=== PATIENT | male | born 1970 | race Hispanic/Latino ===

== ENCOUNTER 2020-07-18 15:55 | Observation (INO) | payer MEDICARE, OTHER ==
[~2020-07-18] VITALS: Ht 167.6 cm; Wt 90.7 kg
[~2020-07-18 15:55] MED LIST: AMLODIPINE BESY10 MG PO; ATENOLOL50 MG PO; ATORVASTATIN CA10 MG PO; BENICAR HCT 401 EACH PO; METFORMIN HCL500 MG PO
[2020-07-18 16:40] LABS: BASOPHILS % 0.3 % (0.0-1.0); EOSINOPHILS # (AUTO) 0.1 (0.0-0.4); EOSINOPHILS % 1.2 % (0.0-6.0); HEMATOCRIT 39.9 % (38.2-49.6); HEMOGLOBIN 13.8 g/dL (14.0-18.0); LYMPHOCYTES # (AUTO) 2.7 (1.0-3.2); MEAN CORPUSCULAR HEMOGLOBIN 29.9 pg (28-32); MEAN CORPUSCULAR HGB CONC 34.6 g/dL (31-35); MEAN CORPUSCULAR VOLUME 86.4 fL (81-99); MONOCYTES % 8.6 % (4.4-11.3); NEUTROPHILS # (AUTO) 7.3 (2.1-6.9); NEUTROPHILS % 65.4 % (38.7-80.0); PLATELET COUNT 280 x10e3/uL (140-360); RED BLOOD COUNT 4.62 x10e6/uL (4.3-5.7); RED CELL DISTRIBUTION WIDTH 12.6 % (11.7-14.4)
[2020-07-18 16:49] LABS: INR 0.96; PROTHROMBIN TIME 13.3 seconds (11.9-14.5)
[2020-07-18 16:58] LABS: CLARITY,URINE CLEAR (CLEAR); COLOR,URINE YELLOW (YELLOW); LEUKOCYTE ESTERASE ,URINE NEGATIVE (NEGATIVE); NITRITE,URINE NEGATIVE (NEGATIVE)
[2020-07-18 16:59] LABS: BILIRUBIN,URINE NEGATIVE (NEGATIVE); KETONES,URINE TRACE (NEGATIVE); PROTEIN,URINE DIPSTICK NEGATIVE (NEGATIVE); URINE UROBILINOGEN 0.2 mg/dL (0.2 - 1)
[2020-07-18 17:00] LABS: ALANINE AMINOTRANSFERASE 14 IU/L (0-55); ALBUMIN/GLOBULIN RATIO 1.1 (0.8-2.0); ALKALINE PHOSPHATASE 60 IU/L (40-150); ANION GAP 11.1 mmol/L (8-16); BLOOD UREA NITROGEN 14 mg/dL (7-26); BUN/CREATININE RATIO 19 (6-25); CALCIUM 9.4 mg/dL (8.4-10.2); CARBON DIOXIDE 26 mmol/L (22-29); CHLORIDE 95 mmol/L (98-107); CREATININE, SERUM 0.73 mg/dL (0.72-1.25); EST GLOMERULAR FILTRATION RATE > 60 ML/MIN (60-); POTASSIUM 3.1 mmol/L (3.5-5.1); SODIUM 129 mmol/L (136-145)
[2020-07-18 17:08] LABS: GLUCOSE 33 mg/dL (74-118)
[2020-07-18] MEDS ORDERED: DEXTROSE 5%/0.9% SOD CHL 1,000 ML IV ONE (17:15)
[2020-07-18] MEDS ORDERED: DEXTROSE 50% SYRINGE 50 ML IV ONE (17:16)
[2020-07-18 17:29] LABS: BACTERIA,URINE RARE /HPF; WBC,URINE (MAN) 0-5 /HPF (0-5)
[2020-07-18] MEDS ORDERED: DEXTROSE 50% SYRINGE 50 ML IV STA (17:37)
[2020-07-18 18:29] VITALS: BP 116/70
[2020-07-18 19:56] VITALS: BP 116/70
[2020-07-18] MEDS ORDERED: ACETAMINOPHEN 325 MG TAB PO PRN (21:00)
[2020-07-18] MEDS ORDERED: HYDRALAZINE HCL 20 MG/ML VIAL IV PRN (21:00)
[2020-07-18] MEDS ORDERED: MELATONIN 5 MG TABLET PO PRN (21:00)
[2020-07-18] MEDS ORDERED: TRAMADOL HCL 50 MG TAB PO PRN (21:00)
[2020-07-18] MEDS ORDERED: ONDANSETRON HCL INJ 2MG/ML 2ML 2 MG/ML VIAL IV PRN (21:00)
[2020-07-18] MEDS ORDERED: DIPHENHYDRAMINE HCL 25 MG CAP PO PRN (21:00)
[2020-07-18] MEDS ORDERED: CHLORASEPTIC SPRAY 177 ML BTL MM PRN (21:00)
[2020-07-18] MEDS ORDERED: DEXTROSE 50% SYRINGE 50 ML IV PRN (21:00)
[2020-07-18] MEDS ORDERED: BENZONATATE 100 MG CAP PO PRN (21:00)
[2020-07-18] MEDS ORDERED: ALBUTEROL/IPRATROPIUM 3 ML NEB NEB PRN (21:00)
[2020-07-18] MEDS ORDERED: DOCUSATE SODIUM 100 MG CAP PO PRN (21:00)
[2020-07-18] MEDS ORDERED: POLYETHYLENE GLYCOL 3350 17 GM PACK PO PRN (21:00)
[2020-07-18] MEDS ORDERED: POTASSIUM CHLORIDE 20 MEQ TAB CR PO PRN (21:00)
[2020-07-18] MEDS ORDERED: POTASSIUM CHLORIDE 20 MEQ TAB CR PO STA (21:03)
[2020-07-18 21:10] VITALS: BP 107/61
[2020-07-18 22:16] VITALS: BP 107/61
[2020-07-19] VITALS (8 sets, daily range): BP systolic 93–128; BP diastolic 61–83
[2020-07-19 05:29] LABS: BASOPHILS % 0.3 % (0.0-1.0); EOSINOPHILS # (AUTO) 0.1 (0.0-0.4); EOSINOPHILS % 1.2 % (0.0-6.0); HEMATOCRIT 38.2 % (38.2-49.6); HEMOGLOBIN 12.9 g/dL (14.0-18.0); LYMPHOCYTES # (AUTO) 2.8 (1.0-3.2); LYMPHOCYTES % 32.6 % (18.0-39.1); MEAN CORPUSCULAR HEMOGLOBIN 29.9 pg (28-32); MEAN CORPUSCULAR HGB CONC 33.8 g/dL (31-35); MEAN CORPUSCULAR VOLUME 88.4 fL (81-99); MONOCYTES # (AUTO) 0.6 (0.2-0.8); MONOCYTES % 6.8 % (4.4-11.3); NEUTROPHILS % 58.6 % (38.7-80.0); PLATELET COUNT 255 x10e3/uL (140-360); RED BLOOD COUNT 4.32 x10e6/uL (4.3-5.7); RED CELL DISTRIBUTION WIDTH 12.7 % (11.7-14.4)
[2020-07-19 05:53] LABS: ALANINE AMINOTRANSFERASE 12 IU/L (0-55); ALBUMIN 3.5 g/dL (3.5-5.0); ALKALINE PHOSPHATASE 53 IU/L (40-150); ANION GAP 12.9 mmol/L (8-16); BLOOD UREA NITROGEN 9 mg/dL (7-26); BUN/CREATININE RATIO 13 (6-25); CALCIUM 8.9 mg/dL (8.4-10.2); CARBON DIOXIDE 26 mmol/L (22-29); CHLORIDE 106 mmol/L (98-107); CREATININE, SERUM 0.67 mg/dL (0.72-1.25); EST GLOMERULAR FILTRATION RATE > 60 ML/MIN (60-); GLUCOSE 95 mg/dL (74-118); POTASSIUM 3.9 mmol/L (3.5-5.1); SODIUM 141 mmol/L (136-145)
[2020-07-19] MEDS: PANTOPRAZOLE SOD 40 MG TABEC PO SCH (09:34)
[2020-07-19] MEDS: ATORVASTATIN 10 MG TAB PO SCH (09:35)
[2020-07-19] MEDS: AMLODIPINE BESYLATE 10 MG TAB PO SCH (09:35)
[2020-07-19] MEDS ORDERED: DEXTROSE 50% SYRINGE 50 ML IV PRN (15:45)
[2020-07-19] MEDS ORDERED: ENOXAPARIN SOD INJ 40 MG/0.4 ML SYR SC SCH (17:00)
[2020-07-20] VITALS: BP 100/72
[2020-07-20 04:00] VITALS: BP 107/64
[2020-07-20 07:32] VITALS: BP 117/72
[2020-07-20] MEDS: ATORVASTATIN 10 MG TAB PO SCH (08:01)
[2020-07-20] MEDS: PANTOPRAZOLE SOD 40 MG TABEC PO SCH (08:01)
[2020-07-20] MEDS: AMLODIPINE BESYLATE 10 MG TAB PO SCH (08:01)
[2020-07-20 08:26] VITALS: BP 117/72
[2020-07-20 11:28] VITALS: BP 111/66
== END 2020-07-20 13:22 | disposition home or self-care (01) ==
LOC: ER 16:29 → ERHOLD 17:14 → MED/SURG3 18:25
PROVIDERS: ADMIT Internal Medicine; ATTEND Internal Medicine
DX: E11.649 Type 2 diabetes mellitus with hypoglycemia without coma (principal); G93.41 Metabolic encephalopathy; I10 Essential (primary) hypertension; F79 Unspecified intellectual disabilities; E78.5 Hyperlipidemia, unspecified; Z79.84 Long term (current) use of oral hypoglycemic drugs; Z20.828 Contact with and (suspected) exposure to other viral communicable diseases
CPT/HCPCS: 36415 ×3; 70450; 71045; 80053 ×2; 81001; 82948 ×3; 83036; 83880; 84484; 85025 ×2; 85610; 93005; 97161; 99284; G0378 ×3; J1650; J7042; J7799; S0164 ×2; U0002